=== PATIENT | female | born 1955 | race African-American/Black ===

== ENCOUNTER 2017-02-05 13:53 | Outpatient (CLI) | payer BC ==
[2017-02-05 14:33] LABS: Basophils % (Auto) 1.1 % (0.0-1.8); Eosinophils % (Auto) 3.2 % (0.0-4.3); Hematocrit 42.8 % (30.3-42.9); Hemoglobin 14.1 gm/dl (10.1-14.3); Mean Corpuscular HGB Conc 33 % (30-34); Mean Corpuscular Hemoglobin 30 pg (28-32); Mean Corpuscular Volume 91 fl (79-97); Platelet Count 259 K/mm3 (140-440); Red Blood Count 4.68 M/mm3 (3.65-5.03); Red Cell Distribution Width 13.2 % (13.2-15.2); White Blood Count 7.3 K/mm3 (4.5-11.0)
[2017-02-05 14:55] LABS: Alanine Aminotransferase 57 units/L (7-56); Albumin 4.2 g/dL (3.9-5); Albumin/Globulin Ratio 1.1 %; Alkaline Phosphatase 71 units/L (35-129); Anion Gap 21 mmol/L; BUN/Creatinine Ratio 16.25; Blood Urea Nitrogen 13 mg/dL (7-17); Calcium 9.7 mg/dL (8.4-10.2); Carbon Dioxide 23 mmol/L (22-30); Chloride 98.6 mmol/L (98-107); Cholesterol 174 mg/dL (50-199); Glucose 116 mg/dL (65-100); HDL Cholesterol 36 mg/dL (40-59); Iron 96 ug/dL (37-170); LDL Cholesterol,Direct 95 mg/dL (50-130); Potassium 4.5 mmol/L (3.6-5.0); Sodium 138 mmol/L (137-145); Total Protein 7.9 g/dL (6.3-8.2); Transferrin 259 mg/dl (192-382); Triglycerides 215 mg/dL (2-149)
[2017-02-05 15:11] LABS: Bilirubin,Direct < 0.2 mg/dL (0-0.2); Bilirubin,Indirect 0.3 mg/dL
[2017-02-09 06:05] LABS: Vitamin D, 25-OH, Total 15 ng/mL (30-100)
== END 2017-02-05 13:54 | disposition home or self-care (01) ==
LOC: LAB 13:53
PROVIDERS: ATTEND Internal Medicine
DX: I10 Essential (primary) hypertension (principal); E55.9 Vitamin D deficiency, unspecified; E78.2 Mixed hyperlipidemia; R94.5 Abnormal results of liver function studies
CPT/HCPCS: 36415; 80053; 80061; 80074; 82103; 82306; 82390; 83550; 85025

== ENCOUNTER 2017-02-12 13:06 | Outpatient (CLI) | payer BC ==
--- NOTE | 2017-02-13 13:34 | Mammography Report ---
BONE DEXA:02/12/17 13:06:00 CLINICAL: Postmenopausal.Asymptomatic. TECHNIQUE: Two site bone DEXA performed on an Hologic scanner. FINDINGS: The average BMD of the lumbar spine L1-L4 is 0.725g/cm squared with a T-score of -2.9 and a Z-score of is 1.4. The average BMD of the left hip is 0.724g/cm squared with a T-score of -1.8 and a Z-score of -0.7. The femoral neck BMD is 0.560g/cm squared with a T score of -2.6 and a Z score of -1.2 IMPRESSION: WHO classification: Osteoporosis with I. fracture risk based on both lumbar spine and left measurements. RECOMMENDATION: Clinical correlation and routine screening. DEFINITIONS: BMD = Bone Mineral Density T-score = BMD related to mean peak bone mass of young adult (mean expressed in Standard Deviation) Z-score = Age matched BMD expressed in SD World Health Organization (WHO) Diagnostic Criteria Normal T-score > -1 SD Osteopenia T-score between -1 and -2.4 SD Osteoporosis T-score -2.5 SD or below NOTE: BMD is not the only risk factor for fracture. One should also consider factors such as the patient's age, risk of falling, previous osteoporotic fracture, family history of osteoporotic fractures, current smoker, and low body weight. Z-scores are not calculated if >80 years of age.
== END 2017-02-12 13:07 | disposition home or self-care (01) ==
LOC: MAMMO 13:06
PROVIDERS: ATTEND Internal Medicine
DX: M81.0 Age-related osteoporosis without current pathological fracture (principal); Z78.0 Asymptomatic menopausal state
CPT/HCPCS: 77080

== ENCOUNTER 2017-02-16 16:15 | Outpatient (CLI) | payer BC ==
--- NOTE | 2017-02-17 08:33 | Magnetic Resonance Report ---
MR LOWER EXTREMITY JOINT RIGHT WITHOUT CONTRAST HISTORY: Right knee pain, recurrent meniscal tear. TECHNIQUE: Multisequence, multiplanar MRI without IV contrast. COMPARISON: 09/17/15. 12/25/14. FINDINGS: The linear tear in the posterior horn and body of the medial meniscus is still identified but appears greatly improved since the previous exams. There is a very subtle linear defect extending to the tibial articular surface and posterior free edge of the medial meniscus. This is in the same location as on previous studies but is less pronounced. It is unclear if this is secondary to surgical intervention or healing. No new meniscal tear is appreciated. The lateral meniscus remains unremarkable. No parameniscal cyst. 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 The remaining intra-articular cartilage is within normal limits. The ACL, PCL, MCL, LCL complex and extensor complex are intact. There is a small subchondral cyst in the lateral tibial plateau measuring 5 mm. Otherwise, the bone marrow signal is within normal limits. No evidence for fracture. No significant joint effusion on today's exam. Tiny popliteal cyst measuring less than 1 cm is noted. The remaining soft tissue structures are within normal limits. IMPRESSION: A subtle tear ND body and posterior horn of the medial meniscus is again seen but appears significantly improved since comparison exams. See above. No new meniscal tear is appreciated. Chondromalacia patella, stable. Tiny popliteal cyst.
== END 2017-02-16 16:16 | disposition home or self-care (01) ==
LOC: MRI 16:15
PROVIDERS: ATTEND Orthopaedic Surgery
DX: S83.206D Unspecified tear of unspecified meniscus, current injury, right knee, subsequent encounter (principal); X58.XXXD Exposure to other specified factors, subsequent encounter; I10 Essential (primary) hypertension; M22.41 Chondromalacia patellae, right knee; M71.21 Synovial cyst of popliteal space [Baker], right knee
CPT/HCPCS: 73721

== ENCOUNTER 2017-02-20 12:53 | Outpatient (CLI) | payer BC | END 2017-02-20 12:54 | disposition home or self-care (01) | LOC: ECHO 12:53 → CARD 12:53 | PROVIDERS: ATTEND Internal Medicine | DX: Z01.818 Encounter for other preprocedural examination (principal); I10 Essential (primary) hypertension | CPT/HCPCS: 93005; 93010 ==

== ENCOUNTER 2017-03-04 06:19 | Day surgery (SDC) | payer BC ==
[2017-03-04] MEDS ORDERED: VERSED IV NR (07:00)
[2017-03-04] MEDS ORDERED: PEPCID PO NR (07:00)
[2017-03-04] MEDS ORDERED: ANCEF/STERILE WATER 2 GM/20 ML IV NR (07:00)
[2017-03-04] MEDS ORDERED: NACL 0.9% 1000 ML 1,000 ML IV SCH (07:00)
[2017-03-04] MEDS ORDERED: DILAUDID IV PRN (07:35)
[2017-03-04] MEDS ORDERED: ZOFRAN IV PRN ×2 (08:00→08:30)
[2017-03-04] MEDS ORDERED: MARCAINE-EPI 0.25%-1:200,000 INFILTRATI ONE (08:16)
[2017-03-04] MEDS ORDERED: ADRENALIN ONE (08:16)
--- NOTE | 2017-03-04 08:27 | Anesthesia Day of Surgery ---
Anesthesia Day of Surgery - Day of Surgery Patient Examined: Yes Patient H&P Reviewed: Yes Patient is NPO: Yes Beta Blockers: Yes
[2017-03-04] MEDS ORDERED: TRANSDERM-SCOP TD NR (08:28)
[2017-03-04] MEDS ORDERED: REGLAN PO NR (08:28)
[2017-03-04] MEDS ORDERED: ZOFRAN ONE (08:30)
--- NOTE | 2017-03-04 08:30 | Anesthesia Consultation ---
Anesthesia Consult and Med Hx Date of service: 03/04/17 - Airway Anesthetic Teeth Evaluation: Good, Partials (upper) ROM Head & Neck: Adequate Mental/Hyoid Distance: Adequate Mallampati Class: Class II Intubation Access Assessment: Probably Good - Pulmonary Exam CTA: Yes - Cardiac Exam Cardiac Exam: RRR - Pre-Operative Health Status ASA Pre-Surgery Classification: ASA2 Proposed Anesthetic Plan: General - Pulmonary Hx Smoking: No Hx Sleep Apnea: No (ROBERTO PRE SCREEN LOW RISK) - Cardiovascular System Hx Hypertension: Yes (2008) Hx Heart Murmur: Yes (MVP) - Central Nervous System Hx Seizures: No CVA: No - Endocrine Hx Renal Disease: No - Other Systems Hx Alcohol Use: No Hx Substance Use: No Hx Cancer: No - Additional Comments Anesthesia Medical History Comments: PONV
[2017-03-04] MEDS ORDERED: SUBLIMAZE ONE (08:35)
[2017-03-04] MEDS ORDERED: DIPRIVAN 10 MG/ML IV ONE (08:35)
[2017-03-04] MEDS ORDERED: ADRENALIN IV ONE (08:42)
[2017-03-04] MEDS ORDERED: DILAUDID ONE (09:24)
[2017-03-04] MEDS ORDERED: ePHEDrine SULFATE ONE (09:31)
[2017-03-04] MEDS ORDERED: MARCAINE-EPI 0.25%-1:200,000 IJ ONE (10:05)
[2017-03-04] MEDS ORDERED: MARCAINE-EPI/PF 0.5%-1:200,000 INFILTRATI ONE (10:29)
[2017-03-04] MEDS ORDERED: DECADRON ONE (10:30)
--- NOTE | 2017-03-04 13:35 | Post Anesthesia Evaluation ---
- Post Anesthesia Evaluation Patient Participated: Yes Airway Patent: Yes Stable Respiratory Function: Yes Nausea/Vomiting: No Temp > 96.8F: Yes Pain Manageable: Yes Adequeate Hydration: Yes Anesthesia Complications: No
--- NOTE | 2017-03-04 16:18 | XRay Report ---
FOUR INTRAOPERATIVE FLUOROSCOPIC IMAGES RIGHT KNEE: 03/04/17 CLINICAL: Right tibial plateau fracture. FINDINGS: AP and lateral views demonstrate a lateral tibial plateau fracture. Some of the views show an instrument marking the lateral tibial plateau. For more detail, please refer to the operative report.
[2017-03-04 19:11] VITALS: BP 119/69
== END 2017-03-04 13:10 | disposition home or self-care (01) ==
LOC: OR 06:19
PROVIDERS: ATTEND Orthopaedic Surgery
DX: S83.281A Other tear of lateral meniscus, current injury, right knee, initial encounter (principal); M94.8X6 Other specified disorders of cartilage, lower leg; M94.261 Chondromalacia, right knee; I10 Essential (primary) hypertension; Z88.8 Allergy status to other drugs, medicaments and biological substances; Z88.5 Allergy status to narcotic agent; Z91.041 Radiographic dye allergy status; X58.XXXA Exposure to other specified factors, initial encounter
CPT/HCPCS: 29881; 29999; 73560; J0171; J0690; J1100; J1170; J2250; J2405; J2704; J3010; J7030

== ENCOUNTER 2017-08-25 17:03 | Inpatient (IN) | payer BC ==
[2017-08-25] MEDS ORDERED: NACL 0.9% 1000 ML 1,000 ML IV ONE ×2 (17:17→20:43)
--- NOTE | 2017-08-25 17:44 | Emergency Department Report ---
ED Fever HPI - General Chief Complaint: Fever Stated Complaint: FEVER Time Seen by Provider: 08/25/17 17:32 Source: patient, family () Exam Limitations: no limitations - History of Present Illness Initial Comments: 62 YO FEMALE WHO HAD HER 6 MONTH CHECK UP WITH HER DOCTOR ON 08/12 AND UA WAS DONE. PT DID NOT RECEIVE A FOLLOW UP TO NOTIFY HER OF UTI. YESTERDAY, SHE BEGAN HAVING A FEVER OR 102.8 WHICH DID NOT RESPOND TO TYLENOL AND MOTRIN. SHE BECAME WOBBLY AND HAD DIFFICULTY WALKING TODAY THUS HER BROUGHT HER IN TO BE SEEN. SHE C/O FEVER, AND LEFT FLANK PAIN. Timing/Duration: yesterday Fever Severity/Quality: greater than 102 F Fever Therapy [employer]: Ibuprofen, Tylenol Associated Symptoms: other (LEFT FLANK PAIN) ED Review of Systems ROS: Stated complaint: FEVER Other details as noted in HPI Constitutional: denies: chills Eyes: denies: eye pain, eye discharge, vision change ENT: denies: ear pain, throat pain Respiratory: denies: cough, shortness of breath, wheezing Cardiovascular: denies: chest pain, palpitations Endocrine: no symptoms reported Gastrointestinal: denies: abdominal pain, nausea, diarrhea Genitourinary: denies: urgency, dysuria, discharge Musculoskeletal: back pain (LEFT FLANK). denies: joint swelling, arthralgia Skin: denies: rash, lesions Neurological: weakness. denies: headache, paresthesias Psychiatric: denies: anxiety, depression Hematological/Lymphatic: denies: easy bleeding, easy bruising ED Past Medical Hx - Past Medical History Hx Hypertension: Yes (2008) Hx Renal Disease: No Hx Seizures: No - Surgical History Hx Cholecystectomy: Yes - Social History Smoking Status: Never Smoker Substance Use Type: None - Medications Home Medications: Home Medications Medication Instructions Recorded Confirmed Last Taken Type Atenolol [Tenormin] 25 mg PO DAILY 06/22/13 03/04/17 03/04/17 05:00 History Hydrochlorothiazide [HCTZ] 12.5 mg PO QDAY 06/22/13 03/04/17 03/03/17 05:00 History Simvastatin 20 mg PO QDAY 06/22/13 03/04/17 03/03/17 05:00 History Aspirin [Adult Low Dose Aspirin EC] 81 mg PO DAILY 03/03/17 03/04/17 02/25/17 09 :00 History Multivit-Min/FA/Lycopen/Lutein 1 each PO DAILY 03/03/17 03/04/17 03/03/17 05:00 History [Centrum Silver Tablet] [place]-3 Fatty Acids/Fish Oil [Fish 1 tab PO DAILY 03/03/17 03/04/17 03/03/17 05: 00 History Oil] ED Physical Exam - General Limitations: No Limitations General appearance: alert, in no apparent distress - Head Head exam: Present: atraumatic, normocephalic - Eye Eye exam: Present: normal appearance, EOMI - ENT ENT exam: Present: mucous membranes moist - Neck Neck exam: Present: normal inspection, full ROM - Respiratory Respiratory exam: Present: normal lung sounds bilaterally. Absent: respiratory distress - Cardiovascular Cardiovascular Exam: Present: normal rhythm, tachycardia. Absent: systolic murmur, diastolic murmur, rubs, gallop - GI/Abdominal GI/Abdominal exam: Present: soft, normal bowel sounds - Rectal Rectal exam: Present: deferred - Extremities Exam Extremities exam: Present: normal inspection, full ROM - Back Exam Back exam: Present: normal inspection, tenderness (LEFT FLANK) - Neurological Exam Neurological exam: Present: alert, oriented X3, CN II-XII intact - Psychiatric Psychiatric exam: Present: normal affect, normal mood - Skin Skin exam: Present: warm, dry, intact, normal color. Absent: rash ED Course Vital Signs 08/25/17 08/25/17 08/25/17 17:10 17:13 17:36 Temperature 102.9 F H 102.3 F H 102.8 F H Pulse Rate 109 H 109 H 108 H Respiratory 18 18 16 Rate Blood Pressure 127/75 120/78 Blood Pressure [Left] Blood Pressure 140/80 [Right] O2 Sat by Pulse 95 100 100 Oximetry 08/25/17 08/25/17 18:15 19:18 Temperature 100.5 F H Pulse Rate 97 H Respiratory 16 Rate Blood Pressure Blood Pressure 129/70 [Left] Blood Pressure [Right] O2 Sat by Pulse 100 Oximetry ED Medical Decision Making - Lab Data Result diagrams: 08/25/17 18:15 08/25/17 18:15 - Medical Decision Making RAPID STREP/INFLUENZA: NEGATIVE - Differential Diagnosis SEPSIS,UTI,PNEUMONIA,STREP ,INFLUENZA Critical care attestation.: If time is entered above; I have spent that time in minutes in the direct care of this critically ill patient, excluding procedure time. ED Disposition Clinical Impression: Pyelonephritis Sepsis Qualifiers: Sepsis type: sepsis due to unspecified organism Qualified Code(s): A41.9 - Sepsis, unspecified organism Disposition: OP ADMIT IP TO THIS HOSP Is pt being admited?: Yes Does the pt Need Aspirin: No Condition: Stable Referrals: PRAKASH SHAW MD [Primary Care Provider] - 3-5 Days Time of Disposition: 20:46 (CASE REVIEWED WITH DR MENG AND HE WILL DISCUSS THE CASE WITH THE NIGHT HOSPITALIST AND SHE WILL BE ADMITTED)
[2017-08-25] MEDS ORDERED: TYLENOL ONE (18:11)
[2017-08-25] MEDS ORDERED: TORADOL ONE (18:11)
[2017-08-25] MEDS ORDERED: TORADOL IV ONE (18:16)
[2017-08-25] MEDS ORDERED: TYLENOL PO ONE (18:16)
[2017-08-25 18:27] LABS: Basophils % (Auto) 0.4 % (0.0-1.8); Hematocrit 42.8 % (30.3-42.9); Hemoglobin 14.2 gm/dl (10.1-14.3); Mean Corpuscular HGB Conc 33 % (30-34); Mean Corpuscular Hemoglobin 30 pg (28-32); Mean Corpuscular Volume 89 fl (79-97); Platelet Count 257 K/mm3 (140-440); Red Blood Count 4.81 M/mm3 (3.65-5.03); White Blood Count 18.6 K/mm3 (4.5-11.0)
[2017-08-25 18:37] LABS: Bacteria,Urine 4+ /HPF (Negative); Bilirubin,Urine NEG (Negative); Blood,Urine MOD (Negative); Ketones,Urine NEG (Negative); Leukocyte Esterase,Urine LG (Negative); Nitrite,Urine POS (Negative); Urobilinogen,Urine < 2.0 mg/dL (<2.0)
[2017-08-25 18:47] LABS: Anion Gap 21 mmol/L; BUN/Creatinine Ratio 14; Blood Urea Nitrogen 11 mg/dL (7-17); Calcium 9.3 mg/dL (8.4-10.2); Carbon Dioxide 24 mmol/L (22-30); Chloride 96.3 mmol/L (98-107); Glucose 128 mg/dL (65-100); Potassium 3.6 mmol/L (3.6-5.0); Sodium 138 mmol/L (137-145)
[2017-08-25] MEDS ORDERED: LEVAQUIN 750MG/150ML 750 MG/150 ML BAG IV SCH (19:30)
[2017-08-25] MEDS ORDERED: ZOFRAN ONE (21:59)
[2017-08-25] MEDS ORDERED: ZOFRAN IV ONE (22:06)
[2017-08-25] MEDS ORDERED: ZOFRAN IV PRN (22:22)
[2017-08-25] MEDS ORDERED: MILK OF MAGNESIA PO PRN (22:22)
[2017-08-25] MEDS ORDERED: DULCOLAX PR PRN (22:22)
[2017-08-25] MEDS ORDERED: NACL 0.9% 1000 ML 2,000 ML IV ONE (22:25)
--- NOTE | 2017-08-25 22:26 | History and Physical Report ---
History of Present Illness Date of examination: 08/25/17 History of present illness: 60-year-old woman history of hypertension, hyperlipidemia goes to emergency room with complaints of cloudy urine, urinary frequency, fever and chills. Her symptoms started on August 11, she saw her care physician a urinalysis was done which was positive, however she never received treatment. Patient has been taking Tylenol at home for fever, also complaining of generalized weakness Review Of Systems: Constitutional: no weight loss Ears, eyes, nose, mouth and throat: no nasal congestion, no nasal discharge, no sinus pressure, blurry vision, diplopia Neck: No neck pain or rigidity. Cardiovascular: No chest pain, palpitations Respiratory: No shortness of breath, cough Gastrointestinal: No abdominal pain, hematochezia Genitourinary : no dysuria, hematuria Musculoskeletal: no muscle ache Integumentary: no rash, no pruritis Neurological: no parathesias, focal weakness Endocrine: no cold or heat intolerance, no polyuria or polydipsia Hematologic/Lymphatic: no easy bruising, no easy bleeding, no gland swelling Allergic/Immunologic: no urticaria, no angioedema. PAST MEDICAL HISTORY:hypertension, hyperlipidemia PAST SURGICAL HISTORY: Right knee, cholecystectomy FAMILY HISTORY: Hypertension SOCIAL HISTORY: Denies alcohol, tobacco, drugs Medications and Allergies Allergies Allergy/AdvReac Type Severity Reaction Status Date / Time JULIA Inhibitors Allergy Angioedema Verified 03/03/17 10:32 codeine Allergy Shortness Verified 03/03/17 10:32 of Breath iodine Allergy Swelling Verified 03/03/17 10:32 lisinopril Allergy Angioedema Verified 03/03/17 10:32 IVP DYE Allergy Swelling Uncoded 07/05/15 07:04 Home Medications Medication Instructions Recorded Confirmed Last Taken Type Atenolol [Tenormin] 25 mg PO DAILY 06/22/13 03/04/17 03/04/17 05:00 History Hydrochlorothiazide [HCTZ] 12.5 mg PO QDAY 06/22/13 03/04/17 03/03/17 05:00 History Simvastatin 20 mg PO QDAY 06/22/13 03/04/17 03/03/17 05:00 History Aspirin [Adult Low Dose Aspirin EC] 81 mg PO DAILY 03/03/17 03/04/17 02/25/17 09 :00 History Multivit-Min/FA/Lycopen/Lutein 1 each PO DAILY 03/03/17 03/04/17 03/03/17 05:00 History [Centrum Silver Tablet] [place]-3 Fatty Acids/Fish Oil [Fish 1 tab PO DAILY 03/03/17 03/04/17 03/03/17 05: 00 History Oil] Active Meds: Active Medications Levofloxacin/Dextrose (Levaquin 750mg/150ml) 750 mg in 150 mls @ 100 mls/hr IV Q24H MARKIE PRN Reason: Protocol Last Admin: 08/25/17 19:30 Dose: 100 mls/hr Exam - Physical Exam Narrative exam: Gen. appearance: Patient lying in bed in no acute distress HEENT: Normocephalic/atraumatic, pupils equal round reactive to light, extra occular movement intact, no scleral icterus, no JVD or thyromegaly or nodule, neck is supple, mucous membrane moist, no erythema or exudate Heart: S1-S2, regular rate and rhythm Lungs: Clear to auscultation bilateral breathing comfortable Abdomen: Positive bowel sounds, nontender, nondistended, no organomegaly Extremities: No edema, cyanosis, clubbing Neuro:: Oriented 3 , cranial nerves II-12 intact, speech, motor intact Skin: No rash, nodules, warm dry - Constitutional Vitals: Temp Pulse Resp BP Pulse Ox 100.5 F H 97 H 16 129/70 100 08/25/17 19:18 08/25/17 18:15 08/25/17 18:15 08/25/17 18:15 08/25/17 18:15 Results - Labs CBC & Chem 7: 08/25/17 18:15 08/25/17 18:15 Labs: Abnormal lab results 08/25/17 08/25/17 08/25/17 Range/Units 18:15 18:15 18:15 WBC 18.6 H (4.5-11.0) K/mm3 RDW 13.0 L (13.2-15.2) % Lymph % (Auto) 5.3 L (13.4-35.0) % Lymph # 1.0 L (1.2-5.4) K/mm3 [place] # 1.0 H (0.0-0.8) K/mm3 Seg Neutrophils % 89.0 H (40.0-70.0) % Seg Neutrophils # 16.6 H (1.8-7.7) K/mm3 Chlor[place] 96.3 L (98-107) mmol/L Glucose 128 H (65-100) mg/dL Lactic Acid (0.7-2.0) mmol/L Urine WBC (Auto) 81.0 H (0.0-6.0) /HPF 08/25/17 Range/Units 21:13 WBC (4.5-11.0) K/mm3 RDW (13.2-15.2) % Lymph % (Auto) (13.4-35.0) % Lymph # (1.2-5.4) K/mm3 [place] # (0.0-0.8) K/mm3 Seg Neutrophils % (40.0-70.0) % Seg Neutrophils # (1.8-7.7) K/mm3 Chloride (98-107) mmol/L Glucose (65-100) mg/dL Lactic Acid 2.70 H* (0.7-2.0) mmol/L Urine WBC (Auto) (0.0-6.0) /HPF Assessment and Plan Assessment Sepsis Urinary tract infection Hypertension Hyperlipidemia Plan Admit to medicine Start IV fluid, IV Rocephin, follow cultures, check lactate Continue appropriate outpatient medications
[2017-08-25] MEDS ORDERED: NACL 0.9% 1000 ML 1,000 ML IV SCH (23:00)
[2017-08-26 03:05] LABS: Basophils % (Auto) 0.3 % (0.0-1.8); Eosinophils % (Auto) 0.1 % (0.0-4.3); Hematocrit 37.9 % (30.3-42.9); Hemoglobin 12.7 gm/dl (10.1-14.3); Mean Corpuscular HGB Conc 34 % (30-34); Mean Corpuscular Hemoglobin 30 pg (28-32); Mean Corpuscular Volume 90 fl (79-97); Platelet Count 207 K/mm3 (140-440); Red Blood Count 4.23 M/mm3 (3.65-5.03); Red Cell Distribution Width 13.2 % (13.2-15.2)
[2017-08-26 03:14] LABS: Anion Gap 19 mmol/L; BUN/Creatinine Ratio 12; Blood Urea Nitrogen 11 mg/dL (7-17); Calcium 7.9 mg/dL (8.4-10.2); Carbon Dioxide 23 mmol/L (22-30); Chloride 101.8 mmol/L (98-107); Glucose 119 mg/dL (65-100); Potassium 3.6 mmol/L (3.6-5.0); Sodium 140 mmol/L (137-145)
[2017-08-26] MEDS: TYLENOL PO PRN ×3 (07:56→21:34)
--- NOTE | 2017-08-26 08:41 | Progress Note ---
<LANG LEO - Last Filed: 08/26/17 14:58> Assessment and Plan Assessment and plan: Patient is a 60-year-old woman history of hypertension, hyperlipidemia goes to emergency room with complaints of cloudy urine, urinary frequency, fever and chills. Sepsis Follow urine cultures Continue on IV fluid hyrration Continue with empiric IV Rocephin Infectious diseases following Supportive care Urinary tract infection Continue on Rocephin Hypertension Continue home antihypertensive Closely monitor blood pressure Hyperlipidemia Resume antilipid agents DVT prophylaxis Lovenox History Interval history: Patient denies having pain. Labs and nursing notes reviewed. Hospitalist Physical - Constitutional Vitals: Temp Pulse Resp BP Pulse Ox 99.9 F H 104 H 18 142/73 98 08/26/17 02:23 08/26/17 02:23 08/26/17 02:23 08/26/17 02:23 08/26/17 02:23 General appearance: Present: no acute distress - EENT Eyes: Present: PERRL ENT: hearing intact - Neck Neck: Present: supple - Respiratory Respiratory effort: normal Respiratory: bilateral: CTA - Cardiovascular Rhythm: regular Heart Sounds: Present: S1 & S2 - Abdominal General gastrointestinal: soft, non-tender - Integumentary Integumentary: Present: clear, warm, dry - Psychiatric Psychiatric: appropriate mood/affect - Neurologic Neurologic: moves all extremities - Allied Health Allied health notes reviewed: nursing Results - Labs CBC & Chem 7: 08/26/17 02:27 08/26/17 02:27 Labs: Laboratory Last Values WBC 15.0 K/mm3 (4.5-11.0) H 08/26/17 02:27 RBC 4.23 M/mm3 (3.65-5.03) 08/26/17 02:27 Hgb 12.7 gm/dl (10.1-14.3) 08/26/17 02:27 Hct 37.9 % (30.3-42.9) 08/26/17 02:27 MCV 90 fl (79-97) 08/26/17 02:27 MCH 30 pg (28-32) 08/26/17 02:27 MCHC 34 % (30-34) 08/26/17 02:27 RDW 13.2 % (13.2-15.2) 08/26/17 02:27 Plt Count 207 K/mm3 (140-440) 08/26/17 02:27 Lymph % (Auto) 10.5 % (13.4-35.0) L 08/26/17 02:27 [place] % (Auto) 7.5 % (0.0-7.3) H 08/26/17 02:27 Eos % (Auto) 0.1 % (0.0-4.3) 08/26/17 02:27 Baso % (Auto) 0.3 % (0.0-1.8) 08/26/17 02:27 Lymph # 1.6 K/mm3 (1.2-5.4) 08/26/17 02:27 [place] # 1.1 K/mm3 (0.0-0.8) H 08/26/17 02:27 Eos # 0.0 K/mm3 (0.0-0.4) 08/26/17 02:27 Baso # 0.0 K/mm3 (0.0-0.1) 08/26/17 02:27 Seg Neutrophils % 81.6 % (40.0-70.0) H 08/26/17 02:27 Seg Neutrophils # 12.2 K/mm3 (1.8-7.7) H 08/26/17 02:27 Sodium 140 mmol/L (137-145) 08/26/17 02:27 Potassium 3.6 mmol/L (3.6-5.0) 08/26/17 02:27 Chloride 101.8 mmol/L (98-107) 08/26/17 02:27 Carbon Dioxide 23 mmol/L (22-30) 08/26/17 02:27 Anion Gap 19 mmol/L 08/26/17 02:27 BUN 11 mg/dL (7-17) 08/26/17 02:27 Creatinine 0.9 mg/dL (0.7-1.2) 08/26/17 02:27 Estimated GFR > 60 ml/min 08/26/17 02:27 BUN/Creatinine Ratio 12 % 08/26/17 02:27 Glucose 119 mg/dL (65-100) H 08/26/17 02:27 Lactic Acid 2.00 mmol/L (0.7-2.0) 08/26/17 02:27 Calcium 7.9 mg/dL (8.4-10.2) L D 12/20/17 02:27 Urine Color Yellow (Yellow) 08/25/17 18:15 Urine Turbidity Clear (Clear) 08/25/17 18:15 Urine pH 6.0 (5.0-7.0) 08/25/17 18:15 Ur Specific [place] 1.016 (1.003-1.030) 08/25/17 18:15 Urine Protein 30 mg/dl mg/dL (Negative) 08/25/17 18:15 Urine Glucose (UA) Neg mg/dL (Negative) 08/25/17 18:15 Urine Ketones Neg mg/dL (Negative) 08/25/17 18:15 Urine Blood Mod (Negative) 08/25/17 18:15 Urine Nitrite Pos (Negative) 08/25/17 18:15 Urine Bilirubin Neg (Negative) 08/25/17 18:15 Urine Urobilinogen < 2.0 mg/dL (<2.0) 08/25/17 18:15 Ur Leukocyte Esterase Lg (Negative) 08/25/17 18:15 Urine WBC (Auto) 81.0 /HPF (0.0-6.0) H 08/25/17 18:15 Urine RBC (Auto) 31.0 /HPF (0.0-6.0) 08/25/17 18:15 U Epithel Cells (Auto) < 1.0 /HPF (0-13.0) 08/25/17 18:15 Urine Bacteria (Auto) 4+ /HPF (Negative) 08/25/17 18:15 <LETICIA HONG - Last Filed: 08/26/17 15:50> Hospitalist Physical - Constitutional Vitals: Temp Pulse Resp BP Pulse Ox 100.2 F H 88 20 100/58 96 08/26/17 15:25 08/26/17 15:25 08/26/17 07:21 08/26/17 15:25 08/26/17 07:21 Results - Labs CBC & Chem 7: 08/26/17 02:27 08/26/17 02:27 Labs: Laboratory Last Values WBC 15.0 K/mm3 (4.5-11.0) H 08/26/17 02:27 RBC 4.23 M/mm3 (3.65-5.03) 08/26/17 02:27 Hgb 12.7 gm/dl (10.1-14.3) 08/26/17 02:27 Hct 37.9 % (30.3-42.9) 08/26/17 02:27 MCV 90 fl (79-97) 08/26/17 02:27 MCH 30 pg (28-32) 08/26/17 02:27 MCHC 34 % (30-34) 08/26/17 02:27 RDW 13.2 % (13.2-15.2) 08/26/17 02:27 Plt Count 207 K/mm3 (140-440) 08/26/17 02:27 Lymph % (Auto) 10.5 % (13.4-35.0) L 08/26/17 02:27 [place] % (Auto) 7.5 % (0.0-7.3) H 08/26/17 02:27 Eos % (Auto) 0.1 % (0.0-4.3) 08/26/17 02:27 Baso % (Auto) 0.3 % (0.0-1.8) 08/26/17 02:27 Lymph # 1.6 K/mm3 (1.2-5.4) 08/26/17 02:27 [place] # 1.1 K/mm3 (0.0-0.8) H 08/26/17 02:27 Eos # 0.0 K/mm3 (0.0-0.4) 08/26/17 02:27 Baso # 0.0 K/mm3 (0.0-0.1) 08/26/17 02:27 Seg Neutrophils % 81.6 % (40.0-70.0) H 08/26/17 02:27 Seg Neutrophils # 12.2 K/mm3 (1.8-7.7) H 08/26/17 02:27 Sodium 140 mmol/L (137-145) 08/26/17 02:27 Potassium 3.6 mmol/L (3.6-5.0) 08/26/17 02:27 Chloride 101.8 mmol/L (98-107) 08/26/17 02:27 Carbon Dioxide 23 mmol/L (22-30) 08/26/17 02:27 Anion Gap 19 mmol/L 08/26/17 02:27 BUN 11 mg/dL (7-17) 08/26/17 02:27 Creatinine 0.9 mg/dL (0.7-1.2) 08/26/17 02:27 Estimated GFR > 60 ml/min 08/26/17 02:27 BUN/Creatinine Ratio 12 % 08/26/17 02:27 Glucose 119 mg/dL (65-100) H 08/26/17 02:27 Lactic Acid 2.00 mmol/L (0.7-2.0) 08/26/17 02:27 Calcium 7.9 mg/dL (8.4-10.2) L D 08/26/17 02:27 Urine Color Yellow (Yellow) 08/25/17 18:15 Urine Turbidity Clear (Clear) 08/25/17 18:15 Urine pH 6.0 (5.0-7.0) 08/25/17 18:15 Ur Specific [place] 1.016 (1.003-1.030) 08/25/17 18:15 Urine Protein 30 mg/dl mg/dL (Negative) 08/25/17 18:15 Urine Glucose (UA) Neg mg/dL (Negative) 08/25/17 18:15 Urine Ketones Neg mg/dL (Negative) 08/25/17 18:15 Urine Blood Mod (Negative) 08/25/17 18:15 Urine Nitrite Pos (Negative) 08/25/17 18:15 Urine Bilirubin Neg (Negative) 08/25/17 18:15 Urine Urobilinogen < 2.0 mg/dL (<2.0) 08/25/17 18:15 Ur Leukocyte Esterase Lg (Negative) 08/25/17 18:15 Urine WBC (Auto) 81.0 /HPF (0.0-6.0) H 08/25/17 18:15 Urine RBC (Auto) 31.0 /HPF (0.0-6.0) 08/25/17 18:15 U Epithel Cells (Auto) < 1.0 /HPF (0-13.0) 08/25/17 18:15 Urine Bacteria (Auto) 4+ /HPF (Negative) 08/25/17 18:15
--- NOTE | 2017-08-26 08:48 | XRay Report ---
AP CHEST: HISTORY: Fever, sepsis AP view of the chest demonstrates a normal mediastinal and cardiac contour with clear lungs and normal bony and soft tissue structures. IMPRESSION: Unremarkable AP chest.
[2017-08-26] MEDS: FISH OIL PO SCH (09:16)
[2017-08-26] MEDS: TENORMIN PO SCH (09:16)
[2017-08-26] MEDS: THERAGRAN-M Tab PO SCH (09:17)
[2017-08-26] MEDS: HCTZ PO SCH (09:17)
[2017-08-26] MEDS: HALFPRIN EC PO SCH (09:17)
[2017-08-26] MEDS: LOVENOX SUB-Q SCH (09:18)
--- NOTE | 2017-08-26 15:03 | Consultation ---
History of Present Illness - Reason for Consult Consult date: 08/26/17 sepsis UTI Requesting physician: LETICIA HONG - History of Present Illness 62 years old female with history of admitted on 08/25/17 due to 3 day history of chills, fever up to 101, malaise and bilateral lower back pain. Patient denies dysuria, hematuria, frequency. She was seen in the emergency room today ; was found to have a UTI and was given Levaquin. She took 1 dose the night before admission however fever continued to be worsened. In the emergency room, initial temperature was 102.9, heart rate 109, respiration 18, blood pressure 127/75. Initial white count 18. Ativan 0.8. Lactic acid 2.4. Urinalysis showed large leukocyte esterase and 81 WBCs. Chest x-ray was negative. Microbiology: Blood cultures: 08/25 ngtd Urine cultures: 08/25 GNRs Respiratory cultures: Current Antimicrobials: Levaquin Previous Antimicrobials: Past History Past Medical History: hypertension, hyperlipidemia Past Surgical History: No surgical history Social history: no significant social history, . denies: smoking, alcohol abuse, prescription drug abuse, IV drug use Family history: no significant family history Medications and Allergies Allergies Allergy/AdvReac Type Severity Reaction Status Date / Time JULIA Inhibitors Allergy Angioedema Verified 03/03/17 10:32 codeine Allergy Shortness Verified 03/03/17 10:32 of Breath iodine Allergy Swelling Verified 03/03/17 10:32 lisinopril Allergy Angioedema Verified 03/03/17 10:32 IVP DYE Allergy Swelling Uncoded 07/05/15 07:04 Home Medications Medication Instructions Recorded Confirmed Last Taken Type Atenolol [Tenormin] 25 mg PO DAILY 06/22/13 08/26/17 08/25/17 History Hydrochlorothiazide [HCTZ] 12.5 mg PO QDAY 06/22/13 08/26/17 08/25/17 History Simvastatin 20 mg PO QDAY 06/22/13 08/26/17 08/25/17 History Aspirin [Adult Low Dose Aspirin EC] 81 mg PO DAILY 03/03/17 08/26/17 08/25/17 History Multivit-Min/FA/Lycopen/Lutein 1 each PO DAILY 03/03/17 08/26/17 08/25/17 History [Centrum Silver Tablet] [place]-3 Fatty Acids/Fish Oil [Fish 1 tab PO DAILY 03/03/17 08/26/17 08/25/17 History Oil] Active Meds: Active Medications Acetaminophen (Tylenol) 650 mg PO Q4H PRN PRN Reason: Pain MILD(1-3)/Fever >100.5/BIANCHI Last Admin: 08/26/17 07:56 Dose: 650 mg Aspirin (Halfprin Ec) 81 mg PO DAILY [facility] Last Admin: 08/26/17 09:17 Dose: 81 mg Atenolol (Tenormin) 25 mg PO DAILY [facility] Last Admin: 08/26/17 09:16 Dose: 25 mg Bisacodyl (Dulcolax) 10 mg VA QDAY PRN PRN Reason: Constipation unrelieved by MOM Enoxaparin Sodium (Lovenox) 40 mg SUB-Q QDAY [facility] Last Admin: 08/26/17 09:18 Dose: 40 mg Fish Oil (Fish Oil) 1,000 mg PO DAILY [facility] Last Admin: 08/26/17 09:16 Dose: 1,000 mg Hydrochlorothiazide (Hctz) 12.5 mg PO QDAY [facility] Last Admin: 08/26/17 09:17 Dose: 12.5 mg Levofloxacin/Dextrose (Levaquin 750mg/150ml) 750 mg in 150 mls @ 100 mls/hr IV Q24H MARKIE PRN Reason: Protocol Last Admin: 08/25/17 19:30 Dose: 100 mls/hr Sodium Chloride (Nacl 0.9% 1000 Ml) 1,000 mls @ 150 mls/hr IV DIRECT MARKIE Magnesium Hydroxide (Milk Of Magnesia) 30 ml PO Q4H PRN PRN Reason: Constipation Multivitamins/Minerals (Theragran-M Tab) 1 each PO DAILY [facility] Last Admin: 08/26/17 09:17 Dose: 1 each Ondansetron HCl (Zofran) 4 mg IV Q8H PRN PRN Reason: N/V unrelieved by Reglan Pravastatin Sodium (Pravachol) 40 mg PO QHS [facility] Review of Systems All systems: negative (as per HPI rest neg) Physical Examination - Physical Exam Narrative exam: General appearance: Alert in NAD, conversant Eyes: anicteric sclerae, moist conjunctivae; no lid-lag; PERRLA HENT: Atraumatic; oropharynx clear Neck: Trachea midline; supple, no thyromegaly or lymphadenopathy Lungs: CTA CV: RRR, no murmurs Abdomen: Soft, non-tender; left > right CVT Extremities: No peripheral edema or extremity lymphadenopathy Skin: Normal temperature, turgor and texture; no rash, ulcers or subcutaneous nodules Psych: Appropriate affect, alert and oriented to person, place and time. Neuro: alert and oriented x 3. Moving all extermities Lines: No CVL / PICC - Constitutional Vitals: Vital Signs Temp Pulse Resp BP Pulse Ox 100.7 F H 90 20 110/60 96 08/26/17 07:21 08/26/17 09:16 08/26/17 07:21 08/26/17 09:16 08/26/17 07:21 Temperature -Last 24 Hours Temperature 100.7 F Temperature 99.9 F Temperature 100.5 F Temperature 102.8 F Temperature 102.3 F Temperature 102.9 F Results - Labs CBC & Chem 7: 08/26/17 02:27 08/26/17 02:27 Labs: Abnormal lab results 08/25/17 08/25/17 08/25/17 Range/Units 18:15 18:15 18:15 WBC 18.6 H (4.5-11.0) K/mm3 RDW 13.0 L (13.2-15.2) % Lymph % (Auto) 5.3 L (13.4-35.0) % [place] % (Auto) (0.0-7.3) % Lymph # 1.0 L (1.2-5.4) K/mm3 Arthur # 1.0 H (0.0-0.8) K/mm3 Seg Neutrophils % 89.0 H (40.0-70.0) % Seg Neutrophils # 16.6 H (1.8-7.7) K/mm3 Chloride 96.3 L (98-107) mmol/L Glucose 128 H (65-100) mg/dL Lactic Acid (0.7-2.0) mmol/L Calcium (8.4-10.2) mg/dL Urine WBC (Auto) 81.0 H (0.0-6.0) /HPF 08/25/17 08/26/17 08/26/17 Range/Units 21:13 02:27 02:27 WBC 15.0 H (4.5-11.0) K/mm3 RDW (13.2-15.2) % Lymph % (Auto) 10.5 L (13.4-35.0) % [place] % (Auto) 7.5 H (0.0-7.3) % Lymph # (1.2-5.4) K/mm3 Arthur # 1.1 H (0.0-0.8) K/mm3 Seg Neutrophils % 81.6 H (40.0-70.0) % Seg Neutrophils # 12.2 H (1.8-7.7) K/mm3 Chloride (98-107) mmol/L Glucose 119 H (65-100) mg/dL Lactic Acid 2.70 H* (0.7-2.0) mmol/L Calcium 7.9 L D (8.4-10.2) mg/dL Urine WBC (Auto) (0.0-6.0) /HPF Assessment and Plan Assessment: 1) Sepsis: Present on admission, manifested by fever, tachycardia, leukocytosis , increased lactate. Etiology most likely UTI. 2) UTI: Secondary to GNR. No history of kidney stones. Plan: -follow-up blood cultures, urine culture -obtain C-reactive protein (CRP) -obtain renal US -stop levaquin -start ceftriaxone 1 g IV q day Thank you Dr Hong for your consultation, will follow up with you. Miranda Bryant MD Infectious Diseases Specialist [facility] ([facility] M [phone] O [phone]
[2017-08-26] MEDS ORDERED: ROCEPHIN/NS 1 GM/50 ML 1 GM/50 ML BAG IV SCH (16:00)
--- NOTE | 2017-08-26 16:37 | Ultrasound Report ---
FINAL REPORT EXAM: US RENAL BILAT HISTORY: eval for pyelo, hydro or stones TECHNIQUE: Ultrasound examination of the kidneys PRIORS: None. FINDINGS: Visualized right kidney: 10.0 x 5.2 x 16.6 cm. Visualized left kidney: 9.9 x 4.9 x 4.4 cm. Renal cortical thickness is 16 mm on the right and 18 mm on the left. Focal lesion: None Calculus: None Hydronephrosis: None Perinephric fluid: None Visualized urinary bladder: No evidence of focal abnormality. IMPRESSION: No sonographic evidence of renal pathology
[2017-08-26] MEDS: cefTRIAXone 1 GM in NACL 0.9% 20 ML IV SCH (16:46)
[2017-08-26] MEDS: PRAVACHOL PO SCH (21:34)
[2017-08-26] MEDS ORDERED: cefTRIAXone 1 GM in NACL 0.9% 20 ML IV SCH (22:30)
--- NOTE | 2017-08-27 07:58 | Progress Note ---
Assessment and Plan Assessment and plan: Patient is a 60-year-old woman history of hypertension, hyperlipidemia goes to emergency room with complaints of cloudy urine, urinary frequency, fever and chills.Admitted with fever chills and and urinary symptoms Sepsis Follow urine cultures Continue on IV fluid hyrration Continue with empiric IV Rocephin Infectious diseases following Supportive care Urinary tract infection Urine cultures positive for gram-negative rods Continue on Rocephin Infectious diseases following Hypertension Continue home antihypertensive Closely monitor blood pressure Hyperlipidemia Resume antilipid agents DVT prophylaxis Lovenox History Interval history: Patient denies having pain. Labs and nursing notes reviewed. Hospitalist Physical - Constitutional Vitals: Temp Pulse Resp BP Pulse Ox 99.6 F 70 16 100/44 100 08/26/17 19:42 08/26/17 19:42 08/26/17 19:42 08/26/17 19:42 08/26/17 19:42 General appearance: Present: no acute distress - EENT Eyes: Present: PERRL ENT: hearing intact - Neck Neck: Present: supple - Respiratory Respiratory effort: normal Respiratory: bilateral: CTA - Cardiovascular Rhythm: regular Heart Sounds: Present: S1 & S2 - Abdominal General gastrointestinal: soft, non-tender - Integumentary Integumentary: Present: clear, warm, dry - Psychiatric Psychiatric: appropriate mood/affect - Neurologic Neurologic: moves all extremities - Allied Health Allied health notes reviewed: nursing Results - Labs CBC & Chem 7: 08/26/17 02:27 08/26/17 02:27 Labs: Laboratory Last Values WBC 15.0 K/mm3 (4.5-11.0) H 08/26/17 02:27 RBC 4.23 M/mm3 (3.65-5.03) 08/26/17 02:27 Hgb 12.7 gm/dl (10.1-14.3) 08/26/17 02:27 Hct 37.9 % (30.3-42.9) 08/26/17 02:27 MCV 90 fl (79-97) 08/26/17 02:27 MCH 30 pg (28-32) 08/26/17 02:27 MCHC 34 % (30-34) 08/26/17 02:27 RDW 13.2 % (13.2-15.2) 08/26/17 02:27 Plt Count 207 K/mm3 (140-440) 08/26/17 02:27 Lymph % (Auto) 10.5 % (13.4-35.0) L 08/26/17 02:27 [place] % (Auto) 7.5 % (0.0-7.3) H 08/26/17 02:27 Eos % (Auto) 0.1 % (0.0-4.3) 08/26/17 02:27 Baso % (Auto) 0.3 % (0.0-1.8) 08/26/17 02:27 Lymph # 1.6 K/mm3 (1.2-5.4) 08/26/17 02:27 [place] # 1.1 K/mm3 (0.0-0.8) H 08/26/17 02:27 Eos # 0.0 K/mm3 (0.0-0.4) 08/26/17 02:27 Baso # 0.0 K/mm3 (0.0-0.1) 08/26/17 02:27 Seg Neutrophils % 81.6 % (40.0-70.0) H 08/26/17 02:27 Seg Neutrophils # 12.2 K/mm3 (1.8-7.7) H 08/26/17 02:27 Sodium 140 mmol/L (137-145) 08/26/17 02:27 Potassium 3.6 mmol/L (3.6-5.0) 08/26/17 02:27 Chloride 101.8 mmol/L (98-107) 08/26/17 02:27 Carbon Dioxide 23 mmol/L (22-30) 08/26/17 02:27 Anion Gap 19 mmol/L 08/26/17 02:27 BUN 11 mg/dL (7-17) 08/26/17 02:27 Creatinine 0.9 mg/dL (0.7-1.2) 08/26/17 02:27 Estimated GFR > 60 ml/min 08/26/17 02:27 BUN/Creatinine Ratio 12 % 08/26/17 02:27 Glucose 119 mg/dL (65-100) H 08/26/17 02:27 Lactic Acid 2.00 mmol/L (0.7-2.0) 08/26/17 02:27 Calcium 7.9 mg/dL (8.4-10.2) L D 08/26/17 02:27 C-Reactive Protein 9.50 mg/dL (0.00-1.30) H 08/26/17 17:41 Urine Color Yellow (Yellow) 08/25/17 18:15 Urine Turbidity Clear (Clear) 08/25/17 18:15 Urine pH 6.0 (5.0-7.0) 08/25/17 18:15 Ur Specific [place] 1.016 (1.003-1.030) 08/25/17 18:15 Urine Protein 30 mg/dl mg/dL (Negative) 08/25/17 18:15 Urine Glucose (UA) Neg mg/dL (Negative) 08/25/17 18:15 Urine Ketones Neg mg/dL (Negative) 08/25/17 18:15 Urine Blood Mod (Negative) 08/25/17 18:15 Urine Nitrite Pos (Negative) 08/25/17 18:15 Urine Bilirubin Neg (Negative) 08/25/17 18:15 Urine Urobilinogen < 2.0 mg/dL (<2.0) 08/25/17 18:15 Ur Leukocyte Esterase Lg (Negative) 08/25/17 18:15 Urine WBC (Auto) 81.0 /HPF (0.0-6.0) H 08/25/17 18:15 Urine RBC (Auto) 31.0 /HPF (0.0-6.0) 08/25/17 18:15 U Epithel Cells (Auto) < 1.0 /HPF (0-13.0) 08/25/17 18:15 Urine Bacteria (Auto) 4+ /HPF (Negative) 08/25/17 18:15
[2017-08-27] MEDS: LOVENOX SUB-Q SCH (09:11)
[2017-08-27] MEDS: HCTZ PO SCH (09:11)
[2017-08-27] MEDS: TENORMIN PO SCH (09:12)
[2017-08-27] MEDS: FISH OIL PO SCH (09:12)
[2017-08-27] MEDS: TYLENOL PO PRN (09:12)
[2017-08-27] MEDS: HALFPRIN EC PO SCH (09:12)
[2017-08-27] MEDS: THERAGRAN-M Tab PO SCH (09:12)
[2017-08-27] MEDS ORDERED: ULTRAM PO PRN (11:03)
--- NOTE | 2017-08-27 11:38 | Progress Note ---
Assessment and Plan Assessment: 1) Sepsis: Present on admission, manifested by fever, tachycardia, leukocytosis , increased lactate. Etiology most likely UTI. CRP=9.5 2) UTI: Secondary to E coli pansensitive except for amp. No history of kidney stones. Renal US normal. Plan: -continue ceftriaxone 1 g IV q day -fever may take 2-3 days to break despite appropriate abx -upon discharge will do levaquin 750 mg Po qday total 10 days from 08/26 - 09/[address] Patel for your consultation, will follow up with you. Miranda Bryant MD Infectious Diseases Specialist [facility] M [phone] O [phone] Subjective Date of service: 08/27/17 Principal diagnosis: UTI Interval history: Feels better, still fever but trending down. No urinary symptoms. Microbiology: Blood cultures: 08/25 ngtd Urine cultures: 08/25 E coli pansens except amp Respiratory cultures: Current Antimicrobials: Ceftriaxone 08/26 Previous Antimicrobials: Levaquin Objective - Exam Narrative Exam: General appearance: Alert in NAD, conversant Eyes: anicteric sclerae, moist conjunctivae; no lid-lag; PERRLA HENT: Atraumatic; oropharynx clear Neck: Trachea midline; supple, no thyromegaly or lymphadenopathy Lungs: CTA CV: RRR, no murmurs Abdomen: Soft, non-tender; left > right CVT Extremities: No peripheral edema or extremity lymphadenopathy Skin: Normal temperature, turgor and texture; no rash, ulcers or subcutaneous nodules Psych: Appropriate affect, alert and oriented to person, place and time. Neuro: alert and oriented x 3. Moving all extermities Lines: No CVL / PICC - Constitutional Vitals: Vital Signs Temp Pulse Resp BP Pulse Ox 100.7 F H 76 20 120/54 96 08/27/17 08:31 08/27/17 08:31 08/27/17 08:31 08/27/17 08:31 08/27/17 08:31 Temperature -Last 24 Hours Temperature 100.7 F Temperature 99.6 F Temperature 100.2 F Temperature 99.7 F - Labs CBC & Chem 7: 08/26/17 02:27 08/26/17 02:27 Labs: Abnormal lab results 12/20/17 Range/Units 17:41 C-Reactive Protein 9.50 H (0.00-1.30) mg/dL
[2017-08-27] MEDS: cefTRIAXone 1 GM in NACL 0.9% 20 ML IV SCH (16:14)
[2017-08-27] MEDS: PRAVACHOL PO SCH (22:15)
[2017-08-28] MEDS: TYLENOL PO PRN (00:53)
--- NOTE | 2017-08-28 08:53 | Discharge Summary ---
<LANG LEO - Last Filed: 09/10/17 08:26> Providers - Providers Date of Admission: 08/25/17 22:22 Date of discharge: 08/28/17 Attending physician: TIM OCHOA 08/26/17 14:27 Consult to Physician [CONS] Routine Consulting Provider: CAT PICKARD Reason For Exam: UTI/gm neg rods Place consult to:: yes Notified:: yes Primary care physician: PRAKASH SHAW Hospitalization Reason for admission: UTI Condition: Good Hospital course: Patient is a 60-year-old woman history of hypertension, hyperlipidemia goes to emergency room with complaints of cloudy urine, urinary frequency, fever and chills.Admitted with fever chills and and urinary symptoms. Patient diagnosed with sepsis,Urinary tract infection, Hypertension, Hyperlipidemia. Urine culture positive for pansensitive except for amp. She was treated with IV antibiotics. She is being discharged on oral antibiotic. Patient clinically improved and stable for discharge. Patient was advised to follow up with her primary care. Discharge Diagnosed Sepsis Urinary tract infection with gram-negative Hypertension Hyperlipidemia Disposition: TO HOME OR SELFCARE Time spent for discharge: 33 minutes Core Measure Documentation - Palliative Care Palliative Care/ Comfort Measures: Not Applicable - Core Measures Any of the following diagnoses?: none Exam - Constitutional Vitals: Temp Pulse Resp BP Pulse Ox 98.1 F 69 20 123/72 95 08/28/17 07:36 08/28/17 07:36 08/28/17 07:36 08/28/17 07:36 08/28/17 07:36 General appearance: Present: no acute distress - EENT Eyes: Present: PERRL ENT: hearing intact - Neck Neck: Present: supple - Respiratory Respiratory effort: normal Respiratory: bilateral: CTA - Cardiovascular Rhythm: regular Heart Sounds: Present: S1 & S2 - Abdominal General gastrointestinal: Present: soft, non-tender Female genitourinary: Present: deferred - Rectal Rectal Exam: deferred - Integumentary Integumentary: Present: clear, warm, dry - Musculoskeletal Musculoskeletal: strength equal bilaterally - Psychiatric Psychiatric: appropriate mood/affect - Neurologic Neurologic: moves all extremities - Allied Health Allied health notes reviewed: nursing Plan Activity: no restrictions Diet: low fat, low cholesterol, low salt Follow up with: PRAKASH SHAW MD [Primary Care Provider] - 3-5 Days Prescriptions: Levofloxacin [Levaquin] 750 mg PO QDAY 8 Days tablet traMADol [Ultram 50 MG tab] 50 mg PO Q4H PRN 10 Days #15 tablet PRN Reason: Pain, Moderate (4-6) <TIM OCHOA - Last Filed: 09/10/17 08:52> Providers - Providers Date of Admission: 08/25/17 22:22 Attending physician: TIM OCHOA 08/26/17 14:27 Consult to Physician [CONS] Routine Consulting Provider: CAT PICKARD Reason For Exam: UTI/gm neg rods Place consult to:: dR. Plunk[place] Notified:: yes Phone number called:: [phone] Was contact made?: Yes If yes, spoke with:: on unit to see Time called:: 09:34 Primary care physician: PRAKASH SHAW Exam - Constitutional Vitals: Temp Pulse Resp BP Pulse Ox 98.4 F 69 20 111/78 94 08/28/17 15:48 08/28/17 15:48 08/28/17 15:48 08/28/17 15:48 08/28/17 15:48
[2017-08-28] MEDS: HCTZ PO SCH (09:18)
[2017-08-28] MEDS: FISH OIL PO SCH (09:18)
[2017-08-28] MEDS: THERAGRAN-M Tab PO SCH (09:18)
[2017-08-28] MEDS: TENORMIN PO SCH (09:18)
[2017-08-28] MEDS: HALFPRIN EC PO SCH (09:19)
[2017-08-28] MEDS: LOVENOX SUB-Q SCH (09:19)
--- NOTE | 2017-08-28 09:35 | Progress Note ---
Assessment and Plan Assessment: 1) Sepsis: Present on admission, manifested by fever, tachycardia, leukocytosis , increased lactate. Etiology most likely UTI. CRP=9.5 2) UTI: Secondary to E coli pansensitive except for amp. No history of kidney stones. Renal US normal. Plan: -ok to discharge on levaquin 750 mg Po qday total 10 days from 08/26 - 09/04 -yogurt and probiotics I am signing off Thank you Dr Patel for your consultation, will follow up with you. Miranda Bryant MD Infectious Diseases Specialist [facility] ([facility]) M [phone] O [phone] Subjective Date of service: 08/28/17 Principal diagnosis: UTI Interval history: Feels better, no fever. No urinary symptoms. Microbiology: Blood cultures: 08/25 ngtd Urine cultures: 08/25 E coli pansens except amp Respiratory cultures: Current Antimicrobials: Ceftriaxone 08/26 Previous Antimicrobials: Levaquin Objective - Exam Narrative Exam: General appearance: Alert in NAD, conversant Eyes: anicteric sclerae, moist conjunctivae; no lid-lag; PERRLA HENT: Atraumatic; oropharynx clear Neck: Trachea midline; supple, no thyromegaly or lymphadenopathy Lungs: CTA CV: RRR, no murmurs Abdomen: Soft, non-tender; left > right CVT Extremities: No peripheral edema or extremity lymphadenopathy Skin: Normal temperature, turgor and texture; no rash, ulcers or subcutaneous nodules Psych: Appropriate affect, alert and oriented to person, place and time. Neuro: alert and oriented x 3. Moving all extermities Lines: No CVL / PICC - Constitutional Vitals: Vital Signs Temp Pulse Resp BP Pulse Ox 98.1 F 69 20 123/72 95 08/28/17 07:36 08/28/17 07:36 08/28/17 07:36 08/28/17 07:36 08/28/17 07:36 Temperature -Last 24 Hours Temperature 98.1 F Temperature 99.3 F Temperature 98.6 F - Labs CBC & Chem 7: 08/26/17 02:27 08/26/17 02:27
[2017-08-28] MEDS: cefTRIAXone 1 GM in NACL 0.9% 20 ML IV SCH (17:23)
[2017-08-28 17:24] VITALS: BP 111/78
== END 2017-08-28 18:48 | disposition home or self-care (01) | DRG 872 ==
LOC: ED 17:03 → 3A 22:22 → EEVIPCON 22:22 → 3A 23:18
PROVIDERS: ADMIT Internal Medicine; ATTEND Internal Medicine
DX: A41.9 Sepsis, unspecified organism (principal); N39.0 Urinary tract infection, site not specified; N12 Tubulo-interstitial nephritis, not specified as acute or chronic; I10 Essential (primary) hypertension; E78.5 Hyperlipidemia, unspecified; Z88.6 Allergy status to analgesic agent; Z88.3 Allergy status to other anti-infective agents; Z88.8 Allergy status to other drugs, medicaments and biological substances; Z90.49 Acquired absence of other specified parts of digestive tract; Z79.82 Long term (current) use of aspirin; Z82.49 Family history of ischemic heart disease and other diseases of the circulatory system
CPT/HCPCS: 36415; 71010; 76770; 80048; 81001; 82140; 85025; 86140; 87040; 87076; 87086; 87116; 87186; 87400; 87430; 93005; 93010; 96361; 96365; 96375; A9270-GY; J0696; J1650; J1885; J1956; J2405; J7030

== ENCOUNTER 2018-03-03 08:50 | Outpatient (CLI) | payer BC ==
[2018-03-03 09:09] LABS: Basophils # (Auto) 0.1 K/mm3 (0.0-0.1); Eosinophils # (Auto) 0.4 K/mm3 (0.0-0.4); Eosinophils % (Auto) 4.3 % (0.0-4.3); Hematocrit 43.7 % (30.3-42.9); Hemoglobin 14.8 gm/dl (10.1-14.3); Lymphocytes # (Auto) 2.6 K/mm3 (1.2-5.4); Lymphocytes % (Auto) 31.5 % (13.4-35.0); Mean Corpuscular HGB Conc 34 % (30-34); Mean Corpuscular Hemoglobin 30 pg (28-32); Mean Corpuscular Volume 90 fl (79-97); Monocytes # (Auto) 0.6 K/mm3 (0.0-0.8); Monocytes % (Auto) 7.4 % (0.0-7.3); Platelet Count 229 K/mm3 (140-440); Red Blood Count 4.87 M/mm3 (3.65-5.03); Red Cell Distribution Width 12.3 % (13.2-15.2)
[2018-03-03 09:27] LABS: Alanine Aminotransferase 29 units/L (7-56); Albumin 4.2 g/dL (3.9-5); BUN/Creatinine Ratio 19; Blood Urea Nitrogen 17 mg/dL (7-17); Calcium 9.8 mg/dL (8.4-10.2); HDL Cholesterol 40 mg/dL (40-59); Hemolysis Index 9; LDL Cholesterol,Direct 101 mg/dL (50-130)
== END 2018-03-03 08:51 | disposition home or self-care (01) ==
LOC: LAB 08:50
PROVIDERS: ATTEND Internal Medicine
DX: I10 Essential (primary) hypertension (principal); E78.2 Mixed hyperlipidemia; E55.9 Vitamin D deficiency, unspecified; G47.30 Sleep apnea, unspecified; E78.00 Pure hypercholesterolemia, unspecified; Z90.49 Acquired absence of other specified parts of digestive tract; Z90.710 Acquired absence of both cervix and uterus
CPT/HCPCS: 36415; 80053; 80061; 82306; 85025

== ENCOUNTER 2019-02-09 16:46 | Outpatient (CLI) | payer BC, MEDICARE ==
[2019-02-09 17:29] LABS: Basophils # (Auto) 0.1 K/mm3 (0.0-0.1); Eosinophils # (Auto) 0.2 K/mm3 (0.0-0.4); Eosinophils % (Auto) 3.2 % (0.0-4.3); Hemoglobin 15.8 gm/dl (10.1-14.3); Lymphocytes # (Auto) 2.2 K/mm3 (1.2-5.4); Lymphocytes % (Auto) 32.1 % (13.4-35.0); Mean Corpuscular HGB Conc 34 % (30-34); Mean Corpuscular Volume 90 fl (79-97); Monocytes # (Auto) 0.5 K/mm3 (0.0-0.8); Monocytes % (Auto) 7.5 % (0.0-7.3); Platelet Count 234 K/mm3 (140-440); Red Blood Count 5.13 M/mm3 (3.65-5.03)
[2019-02-09 17:49] LABS: Alanine Aminotransferase 28 units/L (7-56); Albumin 4.5 g/dL (3.9-5); BUN/Creatinine Ratio 18; Blood Urea Nitrogen 14 mg/dL (7-17); Calcium 9.9 mg/dL (8.4-10.2); Chol/HDL Ratio 3.63 %; HDL Cholesterol 41 mg/dL (40-59); Hemolysis Index 6; LDL Cholesterol,Direct 82 mg/dL (50-130)
[2019-02-14 20:53] LABS: Vitamin D, 25-OH, D2 27 ng/mL
== END 2019-02-09 16:47 | disposition home or self-care (01) ==
LOC: LAB 16:46
PROVIDERS: ATTEND Internal Medicine
DX: E78.2 Mixed hyperlipidemia (principal); E55.9 Vitamin D deficiency, unspecified; I10 Essential (primary) hypertension; E78.00 Pure hypercholesterolemia, unspecified; Z90.89 Acquired absence of other organs
CPT/HCPCS: 36415; 80053; 80061; 82306; 85025

== ENCOUNTER 2019-07-28 10:45 | Outpatient (CLI) | payer BC, MEDICARE ==
[2019-07-28 11:25] LABS: Basophils # (Auto) 0.1 K/mm3 (0.0-0.1); Basophils % (Auto) 1.4 % (0.0-1.8); Eosinophils # (Auto) 0.3 K/mm3 (0.0-0.4); Eosinophils % (Auto) 4.7 % (0.0-4.3); Hematocrit 43.6 % (30.3-42.9); Hemoglobin 14.9 gm/dl (10.1-14.3); Lymphocytes # (Auto) 2.5 K/mm3 (1.2-5.4); Lymphocytes % (Auto) 34.7 % (13.4-35.0); Mean Corpuscular HGB Conc 34 % (30-34); Mean Corpuscular Volume 89 fl (79-97); Monocytes # (Auto) 0.5 K/mm3 (0.0-0.8); Monocytes % (Auto) 6.6 % (0.0-7.3); Platelet Count 238 K/mm3 (140-440); Red Cell Distribution Width 13.1 % (13.2-15.2)
[2019-07-28 11:40] LABS: Alanine Aminotransferase 27 units/L (7-56); Albumin 4.3 g/dL (3.9-5); BUN/Creatinine Ratio 18; Blood Urea Nitrogen 14 mg/dL (7-17); Calcium 9.8 mg/dL (8.4-10.2); Chol/HDL Ratio 3.22 %; HDL Cholesterol 44 mg/dL (40-59); Hemolysis Index 8; LDL Cholesterol,Direct 75 mg/dL (50-130)
[2019-08-02 07:34] LABS: Vitamin D, 25-OH, D2 16 ng/mL
== END 2019-07-28 10:46 | disposition home or self-care (01) ==
LOC: LAB 10:45
PROVIDERS: ATTEND Internal Medicine
DX: I10 Essential (primary) hypertension (principal); E78.2 Mixed hyperlipidemia; M81.8 Other osteoporosis without current pathological fracture; Z88.5 Allergy status to narcotic agent; Z88.8 Allergy status to other drugs, medicaments and biological substances
CPT/HCPCS: 36415; 80053; 80061; 82306; 85025

== ENCOUNTER 2019-08-09 14:06 | Outpatient (CLI) | payer BC, MEDICARE ==
--- NOTE | 2019-08-10 08:18 | Mammography Report ---
DIGITAL SCREENING MAMMOGRAM WITH CAD, 08/09/2019 INDICATION: Routine screening mammography. TECHNIQUE: Digital bilateral 2D mammography was obtained in the craniocaudal and mediolateral obliq ue projections. This examination was interpreted with the benefit of Computer-Aided Detection analysi s. COMPARISON: 07/13/2018 FINDINGS: Breast Density: The breasts are heterogeneously dense, which may obscure small masses. There is no evidence of dominant mass, suspicious calcifications or architectural distortion in eithe r breast. IMPRESSION: No mammographic evidence of malignancy. Follow up recommendation: Routine yearly BI-RADS Category 1: Negative. A "normal" or negative report should not discourage follow up or biopsy of a clinically significant f inding. A written summary of these findings will be mailed to the patient. The patient will be entered into a mammography reporting system which will generate a reminder letter for the patient's next appointmen t at the appropriate interval. The [employer] recommends yearly mammograms starting at age 40 and continuing as l lolly as a woman is in good health. Breast MRI is recommended for women with an approximate 20-25% or greater lifetime risk of breast cancer, including women with a strong family history of breast or ova giselle cancer or who have been treated for Hodgkin's disease. Signer Name: Jr Goodwin MD Signed: 08/10/2019 8:13 AM Workstation Name: [id number]
== END 2019-08-09 14:07 | disposition home or self-care (01) ==
LOC: MAMMO 14:06
PROVIDERS: ATTEND Obstetrics & Gynecology
DX: Z12.31 Encounter for screening mammogram for malignant neoplasm of breast (principal)
CPT/HCPCS: 77067

== ENCOUNTER 2020-01-25 14:40 | Outpatient (CLI) | payer BC, MEDICARE ==
[2020-01-25 15:24] LABS: Basophils # (Auto) 0.1 K/mm3 (0.0-0.1); Eosinophils # (Auto) 0.3 K/mm3 (0.0-0.4); Eosinophils % (Auto) 3.5 % (0.0-4.3); Hematocrit 45.5 % (30.3-42.9); Hemoglobin 15.5 gm/dl (10.1-14.3); Lymphocytes # (Auto) 2.7 K/mm3 (1.2-5.4); Lymphocytes % (Auto) 35.7 % (13.4-35.0); Mean Corpuscular HGB Conc 34 % (30-34); Mean Corpuscular Volume 89 fl (79-97); Monocytes # (Auto) 0.5 K/mm3 (0.0-0.8); Platelet Count 236 K/mm3 (140-440); Red Blood Count 5.12 M/mm3 (3.65-5.03); Red Cell Distribution Width 12.7 % (13.2-15.2)
[2020-01-25 15:37] LABS: Alanine Aminotransferase 23 units/L (7-56); Albumin 4.7 g/dL (3.9-5); BUN/Creatinine Ratio 11; Blood Urea Nitrogen 10 mg/dL (7-17); Calcium 9.9 mg/dL (8.4-10.2); Chol/HDL Ratio 3.04 %; HDL Cholesterol 50 mg/dL (40-59); Hemolysis Index 11; LDL Cholesterol,Direct 89 mg/dL (50-130)
[2020-01-29 15:48] LABS: Vitamin D, 25-OH, D2 48 ng/mL
== END 2020-01-25 14:41 | disposition home or self-care (01) ==
LOC: LAB 14:40
PROVIDERS: ATTEND Internal Medicine
DX: Z00.00 Encounter for general adult medical examination without abnormal findings (principal)
CPT/HCPCS: 36415; 80053; 80061; 82306; 84443; 85025

== ENCOUNTER 2020-02-07 08:47 | Outpatient (CLI) | payer BC, MEDICARE ==
--- NOTE | 2020-02-07 10:54 | Ultrasound Report ---
ULTRASOUND RENAL INDICATION: HEMATURIA OF UNKNOWN ETIOLOGY. COMPARISON: No relevant prior imaging study available. FINDINGS: RIGHT KIDNEY: Size: 9.5 cm. Echogenicity: Normal. Cortical thickness: 1.5 cm. Hydronephrosis: None. Cyst or mass: None. Stones: None. LEFT KIDNEY: Size: 8.6 cm. Echogenicity: Normal. Cortical thickness: 1.6 cm. Hydronephrosis: None. Cyst or mass: None. Stones: None. Urinary Bladder: No significant abnormality. Free Fluid: None. Additional Findings: Fatty liver is incidentally noted.. IMPRESSION 1. No acute sonographic abnormality of the kidneys. Signer Name: Aureliano Catherine MD Signed: 02/07/2020 10:50 AM Workstation Name: [id number]
== END 2020-02-07 08:48 | disposition home or self-care (01) ==
LOC: ECHO 08:47
PROVIDERS: ATTEND Internal Medicine
DX: I36.1 Nonrheumatic tricuspid (valve) insufficiency (principal); R31.9 Hematuria, unspecified; I05.9 Rheumatic mitral valve disease, unspecified
CPT/HCPCS: 76770; 93306